=== PATIENT | male | born 1970 ===

== ENCOUNTER → 2016-11-22 | Outpatient (REF) | payer BC | LOC: M LAB REF 16:30 | PROVIDERS: ATTEND Nurse Practitioner Family | DX: J02.9 Acute pharyngitis, unspecified (principal) ==

== ENCOUNTER → 2016-12-20 | Outpatient (REF) | payer BC ==
[2016-12-20 13:32] LABS: PERCENT SATURATION 24.8 % (19.7-37.4)
== END ==
LOC: M LAB REF 12:09
PROVIDERS: ATTEND Internal Medicine
DX: Z01.89 Encounter for other specified special examinations (principal); K76.89 Other specified diseases of liver

== ENCOUNTER → 2017-04-03 | Outpatient (REF) | payer BC | LOC: M LAB REF 17:29 | PROVIDERS: ATTEND Ophthalmology | DX: H10.022 Other mucopurulent conjunctivitis, left eye (principal) ==